=== PATIENT | female | born 1955 | race Caucasian/White ===

== ENCOUNTER 2022-07-14 14:21 | Emergency (ER) | payer MEDICARE, BC ==
[2022-07-14] MEDS ORDERED: cefTRIAXone 1 GM Vial IM ONE (15:10)
[2022-07-14] MEDS ORDERED: Ketorolac 30 MG/ML SDV IM ONE (15:11)
[2022-07-14] MEDS ORDERED: Lidocaine 1% 5 ML VIAL ONE (15:19)
== END 2022-07-14 15:50 | disposition home or self-care (01) ==
LOC: JP.ED 14:21
DX: K04.7 Periapical abscess without sinus (principal); I10 Essential (primary) hypertension; F17.210 Nicotine dependence, cigarettes, uncomplicated; Z88.8 Allergy status to other drugs, medicaments and biological substances; Z79.899 Other long term (current) drug therapy
CPT/HCPCS: 96372; 99282; J0696; J1885

== ENCOUNTER 2025-05-08 14:01 | Emergency (ER) | payer BC, MEDICARE | END 2025-05-08 15:44 | disposition left against medical advice (07) | LOC: JP.ED 14:01 | DX: Z53.21 Procedure and treatment not carried out due to patient leaving prior to being seen by health care provider (principal) ==